=== PATIENT | male | born 1935 | race Caucasian/White ===

== ENCOUNTER 2019-09-21 07:20 | Inpatient (IN) | payer OTHER, SELFPAY ==
[~2019-09-21] VITALS: Ht 177.8 cm; Wt 75.7 kg
--- NOTE | 2019-09-21 07:32 | NUR ---
Patient to ER bed 05 to gown for evaluation. Side rails up.
[2019-09-21 07:33] VITALS: BP_SYST 130
--- NOTE | 2019-09-21 07:35 | NUR ---
ER at bedside examining patient.
--- NOTE | 2019-09-21 07:40 | NUR ---
Pt bib ambulance from home with c/o n/v and generalized weakness x2 days. Denies cough, SOB or fever. V/S stable, pt is afebrile. Currently resting in bed, will continue to monitor.
--- NOTE | 2019-09-21 08:00 | NUR ---
# 20 gauge angiocath placed to LAC. Use of asceptic technique. Opsite placed over site. Blood return noted. Blood for lab drawn from site. Flushed with 10 cc of normal saline. No evidence of infiltration noted. Patient tolerated well.
--- NOTE | 2019-09-21 08:10 | NUR ---
EKG performed at BS by RN. Physician given copy of EKG for review.
--- NOTE | 2019-09-21 08:11 | NUR ---
Radiology at bedside for CXR
[2019-09-21 08:16] LABS: BASOPHILS % (AUTO) 0.3 % (0.0-2.0); HEMATOCRIT 39.5 % (36-54); HEMOGLOBIN 13.7 g/dL (14.0-18.0); LYMPHOCYTES # (AUTO) 0.5 K/uL (1.0-5.5); LYMPHOCYTES % (AUTO) 3.9 % (20.5-51.5); MEAN CORPUSCULAR HEMOGLOBIN 34 pg (27-31); MEAN CORPUSCULAR HGB CONC 35 % (32-36); MEAN CORPUSCULAR VOLUME 97 fL (79.0-98.0); MONOCYTES % (AUTO) 7.8 % (1.7-9.3); NEUTROPHILS # (AUTO) 10.8 K/uL (1.8-7.7); PLATELET COUNT (AUTO) 185 K/uL (130-430); RED BLOOD CELL COUNT(AUTO) 4.06 MIL/uL (4.2-6.2); RED CELL DISTRIBUTION WIDTH 12.9 % (9.0-15.0); WHITE BLOOD COUNT (AUTO) 12.3 K/uL (4.8-10.8)
[2019-09-21 08:30] LABS: ANION GAP 5 (5-15); CALCIUM 9.2 mg/dL (8.4-11.0); CHLORIDE 96 mmol/L (98-107); CREATININE 1.26 mg/dL (0.55-1.30); GLUCOSE 126 mg/dL (70-99); POTASSIUM 3.7 mmol/L (3.5-5.1); SODIUM SERUM 128 mmol/L (136-145); UREA NITROGEN, BLOOD 15 mg/dL (8-21)
[2019-09-21 08:39] LABS: ALANINE AMINOTRANSFERASE 34 U/L (12-78); ALBUMIN 3.3 g/dL (3.4-4.8); ASPARTATE AMINOTRANSFERASE 28 U/L (10-37); TOTAL BILIRUBIN 0.8 mg/dL (0.0-1.0)
[2019-09-21] MEDS ORDERED: NS 500 ML IV ONE (08:45)
--- NOTE | 2019-09-21 09:15 | NUR ---
Admit orders received from Dr. Verdin. Charge nurse notified for tele bed request, no beds available at this time.
--- NOTE | 2019-09-21 09:28 | NUR ---
Med rec and belongings list completed.
--- NOTE | 2019-09-21 09:47 | NUR ---
Nasal swab obtained to r/o covid. Pt tolerated well, swab sent to lab
--- NOTE | 2019-09-21 11:00 | NUR ---
CONSULT CALLED PAGED DR ADLER ORDERED BY DR BOBBI Ware FIB SPOKE WITH AGATA
--- NOTE | 2019-09-21 12:44 | NUR ---
Paged EVS to request hospital bed, pt will be held in ER.
--- NOTE | 2019-09-21 13:20 | NUR ---
Pt placed on hospital bed while awaiting bed placement.
[2019-09-21] MEDS ORDERED: IPRATROPIUM BROM 0.5 MG/2.5 ML VIAL.NEB (ATROVENT) INH PRN (15:30)
[2019-09-21] MEDS ORDERED: ENOXAPARIN SODIUM 40 MG/0.4 ML SYRINGE SUBCUT ONE (15:30)
[2019-09-21] MEDS ORDERED: ALBUTEROL SULFATE 0.083% 2.5 MG/3 ML VIAL.NEB INH PRN (15:30)
--- NOTE | 2019-09-21 16:02 | NUR ---
CONSULTATION PAGED/CALLED Reason for Consultation: [] PNA Person Who was Notified: [] PAGED DR ARMSTRONG DIRECTLY Consulting Physician: [] DR ARMSTRONG Wilton Weaver Specialty: [] PULMO Ordering Physician: [] DR MARTINES
[2019-09-21] MEDS: AZITHROMYCIN 500 MG in NS 250 ML IV SCH (16:12)
[2019-09-21] MEDS: ALBUTEROL SULFATE 0.083% 2.5 MG/3 ML VIAL.NEB INH SCH (16:14)
[2019-09-21] MEDS: IPRATROPIUM BROM 0.5 MG/2.5 ML VIAL.NEB (ATROVENT) INH SCH (16:14)
[2019-09-21] MEDS ORDERED: AZITHROMYCIN 500 MG/VIAL (ZITHROMAX) IV ONE (16:20)
[2019-09-21 16:46] VITALS: BP_SYST 130
[2019-09-21] MEDS: LEVOFLOXACIN 500 MG/D5W 100 ML IV SCH (18:30)
[2019-09-21] MEDS ORDERED: DILTIAZEM HCL 180 MG CAP.SR.24H PO SCH (18:30)
--- NOTE | 2019-09-21 19:13 | NUR ---
Care of patient endorsed to DARVIN Nicole. Currently resting in bed, no distress noted
--- NOTE | 2019-09-21 20:01 | NUR ---
PAtient AO x4, patient voiced no complaints. Patient able to turn himself. Denies any pain. Will continue to monitor
--- NOTE | 2019-09-21 21:48 | NUR ---
Patient resting in bed. Voiced no complaints at this time. Denies any pain.
--- NOTE | 2019-09-21 23:26 | NUR ---
Patient resting quietly. No acute distress noted. Vital signs within normal range.
--- NOTE | 2019-09-22 01:28 | NUR ---
Patient resting quietly. No acute distress noted. Vital signs within normal range.
[2019-09-22] MEDS: ALBUTEROL SULFATE 0.083% 2.5 MG/3 ML VIAL.NEB INH SCH ×4 (01:30→21:57)
[2019-09-22] MEDS: IPRATROPIUM BROM 0.5 MG/2.5 ML VIAL.NEB (ATROVENT) INH SCH ×4 (01:31→21:57)
--- NOTE | 2019-09-22 04:32 | NUR ---
Patient asleep. Resting Comfortably. Chest rise and fall noted.
--- NOTE | 2019-09-22 05:27 | NUR ---
Patient resting quietly. No acute distress noted. Vital signs within normal range.
[2019-09-22] MEDS ORDERED: DILTIAZEM HCL 180 MG CAP.SR.24H PO SCH (07:16)
--- NOTE | 2019-09-22 07:16 | NUR ---
Report received from DARVIN Nicole. Patient resting comfortably. Patient orders reviewed. Q24H cardizem order showing to be given at 0900, last given at 0833. Spoke with Maria Teresa regarding medication she will have pharmacist review and change time of medication. Will continue to follow up.
--- NOTE | 2019-09-22 08:30 | NUR ---
Patient given breakfast tray as ordered by MD. Patient sitting upright in bed as comfortable. Patient was ambulatory to restroom. Resumed on quality assurance monitor final.
[2019-09-22] MEDS ORDERED: ENOXAPARIN SODIUM 40 MG/0.4 ML SYRINGE SUBCUT SCH (09:00)
--- NOTE | 2019-09-22 09:50 | NUR ---
Called pharmacy for morning medications, spoke with DARVIN Puente.
--- NOTE | 2019-09-22 10:37 | NUR ---
Went to give patient eliquis as ordered by territory sales representative. Upon review of patient labs prior to administration, no base line coags were ordered. Asked court monitor to call cardiology group for order prior to adminstration.
--- NOTE | 2019-09-22 10:55 | NUR ---
Spoke with Cardiology, okay to give eliquis without baseline labs. Okay to give 5mg eliquis.
[2019-09-22] MEDS: APIXABAN 2.5 MG TABLET PO SCH (11:10)
--- NOTE | 2019-09-22 11:25 | NUR ---
Patient will be admitted to care of Dr. Verdin. Admitted to Telemetry unit. Will go to room 112B. Belongings list completed. Complete and up to date summary report printed. SBAR report to be given at bedside with opportunity for questions.
--- NOTE | 2019-09-22 11:40 | NUR ---
Admission Note Received patient from ER with diagnosis of New Onset A Fib. Initial Plan of Care discussed-patient verbalized his understanding. Oriented to room, call light, pain management and safety.
[2019-09-22 11:45] VITALS: BP_SYST 116
[2019-09-22] MEDS: LEVOFLOXACIN 500 MG/D5W 100 ML IV SCH (16:37)
[2019-09-22] MEDS: AZITHROMYCIN 500 MG in NS 250 ML IV SCH (16:37)
[2019-09-22 18:43] VITALS: BP_SYST 132
--- NOTE | 2019-09-22 18:59 | NUR ---
Handoff to night team registered nurse. Cristobal Alonzo RN
--- NOTE | 2019-09-22 19:30 | NUR ---
Initial Note: Received report from darian RN. Patient in bed, resting. No acute distress. Even, nonlabored breathing on room air. IV site is saline locked, patent and intact. Bed is locked at lowest position. Side rails up x2. Call light is with patient. Safety and fall precautions in place. Will continue plan of care.
[2019-09-22 20:00] VITALS: BP_SYST 130
--- NOTE | 2019-09-22 21:35 | NUR ---
Rounds: Patient is resting in bed. No s/s acute distress. Breathing is even, nonlabored on room air. Call light is with patient. Safety and fall precautions in place. Will continue to monitor.
[2019-09-23] VITALS: BP_SYST 136
--- NOTE | 2019-09-23 00:04 | NUR ---
Rounds: Patient is resting in bed. No acute distress. Respirations are even and nonlabored on room air. Call light is with patient. Safety and fall precautions in place. Will continue monitoring.
[2019-09-23] MEDS: APIXABAN 2.5 MG TABLET PO SCH ×2 (00:13→09:08)
[2019-09-23] MEDS: ALBUTEROL SULFATE 0.083% 2.5 MG/3 ML VIAL.NEB INH SCH ×3 (01:00→13:00)
[2019-09-23] MEDS: IPRATROPIUM BROM 0.5 MG/2.5 ML VIAL.NEB (ATROVENT) INH SCH ×3 (01:00→13:00)
--- NOTE | 2019-09-23 02:30 | NUR ---
Rounds: Patient is sleeping. Showing no signs of acute distress. Even, nonlabored breathing on room air. Call light is with patient. Safety and fall precautions in place. Will continue to monitor.
--- NOTE | 2019-09-23 04:30 | NUR ---
Rounds: Patient is resting in bed. No signs of acute distress. Breathing is even, nonlabored on room air. Call light is with patient. Safety and fall precautions in place. Will continue monitoring.
--- NOTE | 2019-09-23 06:21 | NUR ---
Closing note: Patient is awake in bed. No acute distress. Even, nonlabored breathing on room air. IV site is saline locked, patent, and intact. All needs met. Bed is locked at lowest position. Side rails up x2. Call light is with patient. Safety and fall precautions in place. Will endorse care to dayshift RN.
--- NOTE | 2019-09-23 07:57 | NUR ---
Dietitian Recommendations *Recommend: add Ensure Enlive TID. ONS will provide additional 1050 kcal and 60gm protein daily. *Recommend appetite stimulant. *Continue 2gm Na diet per MD. *Encourage pt to increase PO intake. Please see Nutritional Assessment for details [facility]
[2019-09-23 08:00] VITALS: BP_SYST 119
--- NOTE | 2019-09-23 08:00 | NUR ---
initial notes rec patient awake alert with ivl intact. no infiltration noted. resp easy and unlabored. no sob noted. bed to the lowest positon and side rails up and locked. call light within reached and knows when to call for assiatance.
--- NOTE | 2019-09-23 10:00 | NUR ---
rounds due meds were given and basilio well. no sob noted.
[2019-09-23 10:03] LABS: ANION GAP 10 (5-15); CALCIUM 8.9 mg/dL (8.4-11.0); CHLORIDE 94 mmol/L (98-107); CREATININE 1.12 mg/dL (0.55-1.30); GLUCOSE 162 mg/dL (70-99); POTASSIUM 3.4 mmol/L (3.5-5.1); SODIUM SERUM 129 mmol/L (136-145); UREA NITROGEN, BLOOD 16 mg/dL (8-21)
[2019-09-23 10:37] LABS: BASOPHILS % (AUTO) 0.3 % (0.0-2.0); EOSINOPHILS % (AUTO) 0.3 % (0.0-4.0); HEMATOCRIT 39.3 % (36-54); HEMOGLOBIN 13.4 g/dL (14.0-18.0); LYMPHOCYTES # (AUTO) 0.6 K/uL (1.0-5.5); MEAN CORPUSCULAR HEMOGLOBIN 33 pg (27-31); MEAN CORPUSCULAR HGB CONC 34 % (32-36); MEAN CORPUSCULAR VOLUME 95 fL (79.0-98.0); MONOCYTES % (AUTO) 13.3 % (1.7-9.3); NEUTROPHILS # (AUTO) 5.9 K/uL (1.8-7.7); NEUTROPHILS % (AUTO) 78.1 % (40.0-70.0); PLATELET COUNT (AUTO) 171 K/uL (130-430); RED BLOOD CELL COUNT(AUTO) 4.12 MIL/uL (4.2-6.2); RED CELL DISTRIBUTION WIDTH 13.2 % (9.0-15.0); WHITE BLOOD COUNT (AUTO) 7.5 K/uL (4.8-10.8)
[2019-09-23] MEDS ORDERED: DILT180C PO (11:18)
[2019-09-23] MEDS ORDERED: APIX2.5T PO (11:18)
[2019-09-23] MEDS ORDERED: ALBMDI INH (11:18)
[2019-09-23] MEDS ORDERED: LEVO500T89 PO (11:18)
[2019-09-23 11:33] LABS: ERYTHROCYTE SEDIMENTATION RATE 80 MM/HR (0-15)
[2019-09-23 11:36] LABS: C-REACTIVE PROTEIN QUANT 24.6 mg/dL (0-0.5)
[2019-09-23 12:36] VITALS: BP_SYST 118
[2019-09-23 13:20] VITALS: BP_SYST 118
--- NOTE | 2019-09-25 16:14 | NUR ---
Discharge Follow Up Phone Call Phoned patient, . Spoke with patient's granddaughter who was staying with patient while his was running errands. Patient was resting. His granddaughter stated they filled all prescriptions but one. She was unsure which, but they were working with the insurance. She was unsure if patient's had made a follow up appointment with the PCP. She will assure that is done at the latest by tomorrow. Explained that a cardiology appointment was recommended, so it would be important to schedule the PCP appointment дмитрий. Asked granddaughter to have patient or phone me back with any questions or concerns. Will remain available upon request.
== END 2019-09-23 15:07 | disposition home or self-care (01) | DRG 871 ==
LOC: SED 07:20 → STU 09:30
PROVIDERS: ADMIT Internal Medicine Hospice and Palliative Medicine; ATTEND Internal Medicine Hospice and Palliative Medicine
DX: A41.9 Sepsis, unspecified organism (principal); J18.9 Pneumonia, unspecified organism; E87.1 Hypo-osmolality and hyponatremia; I48.91 Unspecified atrial fibrillation; R01.1 Cardiac murmur, unspecified; I51.7 Cardiomegaly; R73.9 Hyperglycemia, unspecified; E88.09 Other disorders of plasma-protein metabolism, not elsewhere classified; R55 Syncope and collapse; Z20.828 Contact with and (suspected) exposure to other viral communicable diseases; Z88.1 Allergy status to other antibiotic agents; Z03.818 Encounter for observation for suspected exposure to other biological agents ruled out
CPT/HCPCS: 36415; 71045; 80048; 80053; 83605; 83880; 84484; 85025; 85651-TC; 86140; 87040-TC; 93005; 93306; 94640; 94760; 96361; 96365; 96372; 99285; G0378; J0456; J1650; J1956; J7050; J7060; J7613; U0003-CS